=== PATIENT | male | born 1995 | race Native Hawaiian/Other Pacific Islander ===

== ENCOUNTER 2017-10-10 20:09 | Emergency (ER) | payer OTHER ==
[2017-10-10] MEDS: traMADol 50 MG TAB (BULK 4 TAB ED) PO (22:15)
[2017-10-10] MEDS: NAPROXEN 250 MG TAB PO (22:18)
[2017-10-10] MEDS: METHOCARBAMOL 500 MG TAB PO (22:18)
== END 2017-10-10 22:24 | disposition home or self-care (01) ==
LOC: M ED 20:09
DX: M54.5 Low back pain (principal)
CPT/HCPCS: 99283